=== PATIENT | female | born 1950 | race Caucasian/White ===

== ENCOUNTER → 2018-04-28 10:10 | Outpatient (CLI) | payer MEDICARE, OTHER, SELFPAY ==
--- NOTE | 2018-04-28 | DI.MG.S_ITS ---
BILATERAL DIGITAL SCREENING MAMMOGRAM 3D/2D WITH CAD: 04/28/2018 CLINICAL: Baseline exam. Routine screening. No prior exams were available for comparison. The tissue of both breasts is heterogeneously dense. This may lower the sensitivity of mammography. Current study was also evaluated with a Computer Aided Detection (CAD) system. No significant masses, calcifications, or other findings are seen in either breast. IMPRESSION: NEGATIVE There is no mammographic evidence of malignancy. A 1 year screening mammogram is recommended. This exam was interpreted at Station ID: [id number]. NOTE: For mammograms, a report in lay terms will be sent to the patient. Approximately 15% of breast malignancies will not be visualized mammographically. In the management of a palpable breast mass, a negative mammogram must not discourage biopsy of a clinically suspicious lesion. Electronically Signed By: Nina parra/naveed:04/28/2018 13:39:15 letter sent: Normal Exam ACR BI-RADS Category 1: Negative [id number]
== END ==
PROVIDERS: PCP Internal Medicine; Visit Provider Internal Medicine
DX: Z12.31 Encounter for screening mammogram for malignant neoplasm of breast (principal); M85.852 Other specified disorders of bone density and structure, left thigh
CPT/HCPCS: 77063; 77067; 77080; 77081

== ENCOUNTER 2019-01-06 17:20 | Emergency (ER) | payer MEDICARE, OTHER, SELFPAY ==
[2019-01-06 17:32] VITALS: BP 137/86; PULSE 68; RESP 14; TEMP 37.3; O2SAT 98; BMI 31.3
--- NOTE | 2019-01-06 18:12 | ED_ITS ---
HPI - Ear Problem <ALLEY Durham - Last Filed: 01/06/19 19:42> General Chief complaint: Ear Stated complaint: SUDDEN RIGHT EAR AND NECK PAIN Time Seen by Provider: 01/06/19 17:28 Source: patient and family Mode of arrival: ambulatory Limitations: no limitations History of Present Illness HPI Narrative: The patient is a 68-year-old female with history of depression who presents with chief complaint of sudden onset of right ear and throat pain. She denies any fevers nausea vomiting or diarrhea. She has taken a single Aleve for the pain. She denies any fevers nausea vomiting or diarrhea. She denies any left ear pain. She admits to scratching the inside of her right ear with her fingernail and insert acute tips. She states there is a little bit of blood on the Q-tip. Related Data Home Medications Medication Instructions Recorded Confirmed bupropion HCl XL 150 mg 24 hr 450 mg PO QAM 12/23/17 12/23/17 tablet, extended release escitalopram 20 mg tablet 20 mg PO DAILY tab 12/23/17 01/06/19 tamsulosin 0.4 mg capsule 0.4 mg PO DAILY 12/23/17 01/06/19 Previous Rx's Medication Instructions Recorded ofloxacin 10 drop EAR-RIGHT DAILY #10 ml 01/06/19 Allergies Allergy/AdvReac Type Severity Reaction Status Date / Time No Known Drug Allergies Allergy Verified 01/06/19 17:32 Review of Systems <ALLEY Durham - Last Filed: 01/06/19 19:42> Review of Systems GENERAL: Denies chills, fatigue, malaise, fever, sweats. HEENT: See HPI RESPIRATORY: Denies dyspnea, cough, wheezing, hemoptysis, sputum. CARDIOVASCULAR: Denies chest pain, palpitations, orthopnea, edema, GASTROINTESTINAL: Denies nausea, vomiting, abdominal pain, diarrhea, constipation, melena. : Denies dysuria, frequency, incontinence, hematuria, urinary retention. MUSCULOSKELETAL: denies weakness, joint pain, or bony pain SKIN: Denies rash, skin lesions, or other NEUROLOGIC: Denies weakness, headache, numbness, change in speech, confusion, seizures, incoordination. PSYCHIATRIC: No concerning psychosocial issues. 12 point review of systems is negative except for those stated above PFSH <ALLEY Durham - Last Filed: 01/06/19 19:42> Medical History Insomnia, persistent (Chronic) Obstructive sleep apnea of adult (Chronic) Social History Smoking Status: Unknown if ever smoked Social History Smoking Status: Unknown if ever smoked Exam <ALLEY Durham - Last Filed: 01/06/19 19:42> Narrative Exam Narrative: GENERAL: This is a well-nourished, well-developed patient, in no acute distress HEAD: Atraumatic. Normocephalic. No temporal or scalp tenderness. EYES: Pupils equal round and reactive. Extraocular motions intact. No scleral icterus. No injection or drainage. ENT: Nose without bleeding, purulent drainage or septal hematoma. Throat without erythema, tonsillar hypertrophy or exudate. Uvula midline. Airway patent. Bilateral TMs pearly paz. Right ear has erythema, swelling and slight blood in canal from an apparent scratch on the distal aspect of the ear canal. Left ear canals within normal limits. NECK: Trachea midline. No JVD or lymphadenopathy. Supple, nontender, no meningeal signs. CARDIOVASCULAR: Regular rate and rhythm without murmurs, gallops, or rubs. RESPIRATORY: Clear to auscultation. Breath sounds equal bilaterally. No wheezes, rales, or rhonchi. No cough. No increased respiratory effort. No accessory muscle use. GASTROINTESTINAL: Abdomen soft, non-tender, nondistended. No hepato- splenomegaly, or palpable masses. No guarding. EXTREMITIES: No clubbing, cyanosis, or edema. No joint tenderness, effusion, or edema noted. BACK: Nontender without deformity or crepitance. No flank tenderness. NEURO: AOx3. SKIN: No rash or erythema. Initial Vital Signs Initial Vital Signs: Vital Signs Temperature 99.2 F 01/06/19 17:32 Pulse Rate 68 01/06/19 17:32 Respiratory Rate 14 01/06/19 17:32 Blood Pressure 137/86 01/06/19 17:32 Pulse Oximetry 98 01/06/19 17:32 <Kathy Dc MD - Last Filed: 01/06/19 20:00> Initial Vital Signs Initial Vital Signs: Vital Signs Temperature 99.2 F 01/06/19 17:32 Pulse Rate 68 01/06/19 17:32 Respiratory Rate 14 01/06/19 17:32 Blood Pressure 137/86 01/06/19 17:32 Pulse Oximetry 98 01/06/19 17:32 Course <ALLEY Durham - Last Filed: 01/06/19 19:42> Vital Signs - 8 hr 01/06/19 17:32 01/06/19 18:37 Temperature 99.2 F Pulse Rate 68 72 Respiratory Rate 14 18 Blood Pressure 137/86 Blood Pressure [Left Arm] 132/57 L Pulse Oximetry 98 98 <Kathy Dc MD - Last Filed: 01/06/19 20:00> Vital Signs - 8 hr 01/06/19 17:32 01/06/19 18:37 Temperature 99.2 F Pulse Rate 68 72 Respiratory Rate 14 18 Blood Pressure 137/86 Blood Pressure [Left Arm] 132/57 L Pulse Oximetry 98 98 Medical Decision Making <ALLEY Durham - Last Filed: 01/06/19 19:42> Lab Data Point of Care Testing Rapid Strep A Negative Point of care testing: Point of Care Testing Rapid Strep A Negative MDM Narrative Medical decision making narrative: The patient is a 68-year-old female who prese [facility] with a chief complaint of sore throat and ear pain. She is strep negative. She has a nonacute exam. However given her exam, I will treat her for otitis externa given the swelling and erythema in her canal. I discussed at length follow up with primary care provider as well as taking [id number] medications as needed and able. Discussed coming back to the ER for any acute concerns such as chest pain shortness of breath etc. Patient has no questions or concerns upon discharge. <Kathy Dc MD - Last Filed: 01/06/19 20:00> Lab Data Point of Care Testing Rapid Strep A Negative Point of care testing: Point of Care Testing Rapid Strep A Negative Discharge Plan Departure Patient Disposition: Home Clinical Impression: Otitis externa Qualifiers: Otitis externa type: unspecified type Chronicity: acute Laterality: right Qualified Code(s): H60.501 - Unspecified acute noninfective otitis externa, right ear Discharge Date/Time: 01/06/19 18:38 Interventions: ED Discharge Assessment Last Done: 01/06/19 18:38 Instructions: How to Instill Ear Drops, DI for Otitis Externa Activity Restrictions/Additional Instructions: Please follow up with primary care provider. I have given you antibiotic drops for your ear. I suggest [id number] medications as needed and able for pain. Please come back to the ER for inability keep down fluids, high fever chest pain or shortness of breath. Prescriptions: New ofloxacin 0.3 % drops 10 drop EAR-RIGHT DAILY Qty: 10 RF: 0 No Action bupropion HCl 150 mg tablet extended release 24 hr 450 mg PO QAM RF: 0 tamsulosin 0.4 mg capsule,extended release 24hr 0.4 mg PO DAILY RF: 0 escitalopram oxalate 20 mg tablet 20 mg PO DAILY RF: 0 Referrals: Nasreen Huizar MD [Primary Care Provider] -
[2019-01-06 18:37] VITALS: BP 132/57; PULSE 72; RESP 18; O2SAT 98
== END 2019-01-06 18:38 | disposition home or self-care (01) ==
PROVIDERS: Emergency Provider Nurse Practitioner Family; PCP Internal Medicine
DX: H60.501 Unspecified acute noninfective otitis externa, right ear (principal)
CPT/HCPCS: 87880; 99282; 99283

== ENCOUNTER → 2019-03-18 08:47 | Outpatient (CLI) | payer MEDICARE, OTHER, SELFPAY ==
[2019-03-18 09:36] LABS: Cholesterol 216 mg/dL (140-199); HDL Cholesterol 65 mg/dL (40-60); LDL Cholesterol Calculated 140 mg/dL (<100); Triglycerides 57 mg/dL (35-150)
[2019-03-18 09:39] LABS: High Sensitivity CRP - Cardiac 1.9 mg/L (1.0-3.0)
== END ==
PROVIDERS: PCP Internal Medicine; Visit Provider Internal Medicine
DX: E78.5 Hyperlipidemia, unspecified (principal)
CPT/HCPCS: 36415; 80061; 86140

== ENCOUNTER 2021-09-01 16:04 | Emergency (ER) | payer MEDICARE, OTHER, SELFPAY ==
[2021-09-01] VITALS (24 sets, daily range): BP systolic 85–160; BP diastolic 51–91; PULSE 61–71; RESP 14–22; TEMP 36.7–37.2; O2SAT 95–100
--- NOTE | 2021-09-01 16:18 | DI.RAD.S_ITS ---
PROCEDURE: XR PELVIS 1-2V INDICATIONS: fall from horse, left back/thoracic/lumbar pain TECHNIQUE: 2 view(s) of the pelvis acquired. COMPARISON: None. FINDINGS: Bones: No fractures or dislocations. No suspicious bony lesions. Soft tissues: Visualized bowel gas pattern is normal. No suspicious soft tissue calcifications. IMPRESSION: No evidence acute bony abnormality of the pelvis. If clinical suspicion and/or symptoms persist, further assessment with repeat plain films, or advanced imaging (e.g., CT, MRI, or bone scan) may be helpful for further assessment. Dictated by: Jase Jimenez M.D. on 09/01/2021 at 16:20 Approved by: Jase Jimenez M.D. on 09/01/2021 at 16:21
--- NOTE | 2021-09-01 16:18 | DI.RAD.S_ITS ---
PROCEDURE: XR CHEST 1V INDICATIONS: fall from horse, left back/thoracic/lumbar pain TECHNIQUE: One view of the chest was acquired. COMPARISON: None. FINDINGS: Surgical changes and devices: None. Lungs and pleura: Lungs are clear. No pleural effusions or pneumothorax. Mediastinum: Mediastinal contours appear normal. Heart size is normal. Bones and chest wall: No suspicious bony lesions. Overlying soft tissues appear unremarkable. IMPRESSION: No evidence acute pulmonary process. Dictated by: Jase Jimenez M.D. on 09/01/2021 at 16:00 Approved by: Jase Jimenez M.D. on 09/01/2021 at 16:00
--- NOTE | 2021-09-01 16:19 | DI.CT.S_ITS ---
PROCEDURE: CT HEAD/BRAIN WO CON INDICATIONS: Trauma TECHNIQUE: Noncontrast 4.5 mm thick angled axial sections acquired from the foramen magnum to the vertex, with coronal and sagittal reformats. For radiation dose reduction, the following was used: automated exposure control, adjustment of mA and/or kV according to patient size. COMPARISON: None. FINDINGS: Image quality: Excellent. CSF spaces: Basal cisterns are patent. No extra-axial fluid collections. The ventricles are symmetric in size and shape. Brain: No intracranial bleeds or masses. There is cerebral volume loss for age, with resultant ventricular and sulcal prominence. There are periventricular and deep white matter chronic small vessel ischemic changes. There is intracranial internal carotid artery atherosclerosis. Skull and face: Calvarium and visualized facial bones appear intact, without suspicious lesions. Sinuses: Visualized sinuses and mastoids are clear. IMPRESSION: 1. No evidence of significant acute intracranial process. No evidence of significant intracranial sequelae of acute trauma. Dictated by: Jase Jimenez M.D. on 09/01/2021 at 16:52 Approved by: Jase Jimenez M.D. on 09/01/2021 at 16:54
--- NOTE | 2021-09-01 16:19 | DI.CT.S_ITS ---
PROCEDURE: CT CHEST ABD PEL W CON INDICATIONS: Trauma, fall from horse, left thoracic and lumbar back pain TECHNIQUE: After the administration of intravenous contrast, 5 mm thick sections acquired from the lung apices to the symphysis. 2.5 mm thick coronal and sagittal reformats were acquired. Additional 7 mm thick coronal maximum intensity projection (MIP) reformats acquired through the lungs. Optional 10-minute delayed imaging may be performed from the kidneys to the bladder. For radiation dose reduction, the following was used: automated exposure control, adjustment of mA and/or kV according to patient size. COMPARISON: None. FINDINGS: Image quality: Excellent. CHEST: Lungs: No pulmonary contusions or lacerations. No acute airspace opacities. No pneumothorax. Trace left pleural effusion. Central and peripheral airways appear patent and normal in caliber. Mediastinum: No mediastinal hematomas. Heart size is normal. No pericardial effusion. Thoracic aorta and pulmonary arteries demonstrate normal size and enhancement. No mediastinal or hilar adenopathy. Esophagus is normal in caliber. No hiatal hernia. Chest wall: There is a mid shaft left clavicular fracture. There is a mildly comminuted posterior left 2nd rib fracture. There is a subtle left posterior 3rd rib fracture. There are subtle left 7th and 8th rib fractures. There is a left 9th rib fracture and a left 10th rib fracture. No subcutaneous emphysema. No axillary or supraclavicular adenopathy. Thyroid gland is unremarkable as visualized. ABDOMEN: Solid organs: Spleen: AAST grade 3 splenic injury. There is laceration. There is intraparenchymal hemorrhage. There is subcapsular acute extravasation with extension outside the spleen into this surrounding retroperitoneal tissues with hemorrhagic retroperitoneal hematoma at outside of the spleen. The vascular hilum appears intact. A source of the arterial injury may be a small posterior vessel off of the hilum. Liver: AAST grade 2 subcapsular hematoma along the inferior medial surface of the liver. No active extravasation seen. Right kidney: AAST grade 4 injury, with extensive extravasation of urine forming what appears to be an acute ill-defined urinoma measuring approximately 12 cm in craniocaudal extent. Gallbladder contains small stones. It is intact. Biliary system is non-dilated. Pancreas enhances normally, without transection. No adrenal hematomas. Left kidney and ureter are unremarkable. Peritoneum and bowel: No free fluid or air. Unenhanced bowel loops demonstrate normal wall thickness and caliber. Nodes and vessels: No retroperitoneal or mesenteric adenopathy. Aorta and inferior vena cava are normal in size and enhancement. Miscellaneous: No ventral hernias. PELVIS: Genitourinary: Bladder wall thickness is normal. Miscellaneous: No inguinal hernias or adenopathy. Bones: There are left transverse process fractures of the 2nd and 3rd and 4th lumbar vertebrae. No vertebral compression fractures. IMPRESSION: 1. Bony fractures are as follows: Left clavicular fracture, fractures of 6th left ribs, fractures of the left transverse processes of L2, L3, and L4. 2. No pneumothorax. Some minimal left pleural effusion. 3. Grade 2 liver laceration. 4. Grade 3 splenic laceration with active extravasation and hemorrhage into the extra splenic retroperitoneal tissues. There may potentially be a focal source of extravasation which can potentially be embolized angiographically. 5. Grade 4 right renal injury with formation of a large acute urinoma. Comment: Findings were discussed with Dr. Salinas on 09/01/2021 at 1634 hours [place] Standard Time Dictated by: Jase Jimenez M.D. on 09/01/2021 at 16:25 Approved by: Jase Jimenez M.D. on 09/01/2021 at 16:48
--- NOTE | 2021-09-01 16:19 | DI.CT.S_ITS ---
PROCEDURE: CT CERVICAL SPINE WO CON INDICATIONS: Trauma TECHNIQUE: Noncontrast 3 mm thick sections acquired from the skull base to the T4 level. Sagittal and coronal reformats were then constructed. For radiation dose reduction, the following was used: automated exposure control, adjustment of mA and/or kV according to patient size. COMPARISON: None. FINDINGS: Image quality: Excellent. Bones: Severe cervical spondylitic change. No acute cervical fracture or dislocation. Fractures of the posterior left 1st and 2nd and 3rd and 4th ribs. Comminuted mid shaft left clavicular fracture. Soft tissues: Prevertebral soft tissues are normal in thickness. No paravertebral hematomas. No apical pneumothoraces. IMPRESSION: 1. No evidence acute cervical fracture or dislocation. 2. Severe cervical spondylitic change. 3. Comminuted mid shaft left clavicular fracture, fractures of the left 1st, 2nd, 3rd, and 4th ribs. Dictated by: Jase Jimenez M.D. on 09/01/2021 at 16:49 Approved by: Jase Jimenez M.D. on 09/01/2021 at 16:52
--- NOTE | 2021-09-01 16:21 | ED_ITS ---
HPI - Fall General Chief Complaint: Trauma Stated Complaint: Thrown from horse Time Seen by Provider: 09/01/21 16:07 Source: patient and EMS Mode of arrival: EMS Limitations: no limitations History of Present Illness HPI Narrative: This is a 71-year-old female who was riding her horse when it folded patient's fell onto her left side she pain left thoracic as well as left lumbar spine. Patient had not gotten up. She denies loss of consciousness. She has a small abrasion across her nose. Patient denies headache currently, no neck pain. She denies midline spinal pain but more on the left side and with movement of her left arm. Patient denies any shortness of breath she denies any nausea or vomiting. No loss of bowel or bladder control. No numbness or tingling. She states she is able to move her legs. She is able to lift them without pain. She does take tamsulosin, ibuprofen for an and Flomax no anticoagulants. No tobacco, occasional alcohol, no illicit. Patient received 100 mcg total of fent anyl in route. Related Data Home Medications Medication Instructions Recorded Confirmed bupropion HCl 150 mg 24 hr tablet, 450 mg PO QAM 12/23/17 02/13/21 extended release escitalopram oxalate 20 mg tablet 20 mg PO DAILY tab 12/23/17 02/13/21 tamsulosin 0.4 mg capsule 0.4 mg PO DAILY 12/23/17 02/13/21 Respironics Remstar CPAP #1 ea 04/26/19 02/13/21 naproxen 220 mg-diphenhydramine 25 1 tab PO BEDTIME 08/15/20 02/13/21 mg tablet (Naproxen PM) Allergies Allergy/AdvReac Type Severity Reaction Status Date / Time No Known Drug Allergies Allergy Verified 02/13/21 10:41 Review of Systems Review of Systems ROS Unobtainable: All systems reviewed & are unremarkable except as noted in HPI and below Patient History Medical History Depression Insomnia, 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 Patient appears in mild distress. HEAD: No evidence of trauma, no raccoon/[place] sign. NECK: Nontender, painless range of motion, trachea midline Positive for Nexus criteria, there is no midline line tenderness, positive for distracting distracting injury when rolled for evaluation, no altered mental status, neuro deficit, recent EtOH. EYES: PERRLA, EOMI ENT: External inspection normal except for a very superficial abrasion across the anterior bridge of the nose, trachea is midline, TM's are normal no hemotypanum, Nares are clear, no septal hematoma, no dental or oral injury, airway is normal and with normal occlusion, No bony tenderness RESP: Chest is nontender and has symmetric movement, no ecchymosis, breath sounds are normal no crackles, wheezes or rales CVS: Heart sounds are normal, no murmur noted, No JVD. ABG/GI: Nontender, soft, normal bowel sounds, no distention, no organomegaly, pelvic rock is negative GENIT, RECTAL: Normal external inspection, normal rectal ton NEURO: Oriented AOx3, neuro is grossly intact, sensation and motor is normal all 4 extremities moving, cranial nerves II through XII are intact, GCS is 15 PSYCH: Normal mood and affect SKIN: Intact, warm and dry, no crepitus and without decubitus BACK: No CVA tenderness, no vertebral tenderness, no step-off's, no crepitus EXT: Atraumatic, hips are nontender, no pedal edema, normal color and temperatu re, normal range of motion of extremities with normal tendon exam, 2+ pulses in all four extremities Initial Vital Signs Initial Vital Signs: Vital Signs Temperature 98.0 F 09/01/21 16:20 Respiratory Rate 22 09/01/21 16:20 Blood Pressure 160/91 H 09/01/21 16:20 Pulse Oximetry 99 09/01/21 16:20 Scores GCS Eric coma scale eye opening: Spontaneous [place] coma scale verbal response: Orientated Eric coma scale motor response: Obey commands Eric coma scale total score: 15 Course Orders Ordered: ED Orders 09/01/21 16:10 Complete Blood Count AUTO DIFF Stat Comprehensive Metabolic Panel Stat Ethanol (ETOH) Stat Lipase Stat PRBC [Packed Cells] Stat Partial Thromboplastin Time Stat Prothrombin Time INR Stat Type and Screen Stat 09/01/21 16:18 Chest [XR chest 1V] Stat XR pelvis 1-2V Stat 09/01/21 16:19 CT cervical spine wo con Stat CT chest abd pel w con Stat CT head/brain wo con Stat 09/01/21 16:39 EKG-12 Lead Stat 09/01/21 17:42 COVID19 -Nasal swab/Pre-Proc Stat Discontinued Medications Diphtheria/Tetanus/Acell Pertussis (Tet,Diph,Pertuss(Acell),Vac/Pf 0.5 Ml Syringe) 0.5 ml IM .ONCE ONE Stop: 09/01/21 16:21 Last Admin: 09/01/21 16:32 Dose: 0.5 ml Documented by: BTONER Morphine Sulfate (Morphine 4 Mg/Ml Inj) 4 mg IV NOW ONE Stop: 09/01/21 16:21 Last Admin: 09/01/21 16:31 Dose: 4 mg Documented by: BTONER Ondansetron HCl (Ondansetron 4 Mg/2 Ml Inj) 4 mg IV NOW ONE Stop: 09/01/21 16:21 Last Admin: 09/01/21 16:32 Dose: 4 mg Documented by: BTONER Ondansetron HCl (Ondansetron 4 Mg/2 Ml Inj) 4 mg IV NOW ONE Stop: 09/01/21 17:38 Consultations Consultation #1: Dr. Willis, general surgery. Renal laceration and bleed is noted on CT formal read is not back. Suspect patient needs to go to [facility] they have availability. Dr. Willis recontacted and updated on multiple solid organ lacerations with active bleed. Time: 17:35 Consultation #2: Dr. Jimenez, radiology. Patient has a grade 4 renal laceration with urine extravasation, grade 3 liver laceration with extravasation which is extra splenic as well as a subcapsular hematoma of the liver. Some rib fractures are noted no obvious pneumo, clavicular fracture. Patient's reads are not co mpleted. Time: 17:40 Consultation #3: [place]lah, Dr. Jerrica Rizzo accepts for transfer to [facility] ED. Time: 17:46 Vital Signs Vital signs: Vital Signs - 8 hr 09/01/21 16:20 09/01/21 16:30 09/01/21 16:40 Temperature 98.0 F Pulse Rate 66 61 Respiratory Rate 22 15 Blood Pressure 160/91 H 134/76 145/79 H Pulse Oximetry 99 99 100 09/01/21 16:50 09/01/21 17:00 09/01/21 17:10 Temperature Pulse Rate 66 65 67 Respiratory Rate 17 18 Blood Pressure Pulse Oximetry 98 95 97 09/01/21 17:13 09/01/21 17:15 09/01/21 17:20 Temperature Pulse Rate 66 67 66 Respiratory Rate 21 18 17 Blood Pressure 122/65 114/69 Pulse Oximetry 97 99 99 09/01/21 17:30 09/01/21 17:31 09/01/21 17:39 Temperature Pulse Rate 63 65 65 Respiratory Rate 19 20 22 Blood Pressure 93/51 L 91/54 L Pulse Oximetry 98 98 99 09/01/21 17:40 09/01/21 17:47 09/01/21 17:50 Temperature Pulse Rate 64 65 64 Respiratory Rate 19 19 20 Blood Pressure 85/51 L 88/51 L Pulse Oximetry 99 97 97 09/01/21 17:59 09/01/21 18:00 09/01/21 18:04 Temperature 99 F Pulse Rate 64 65 65 Respiratory Rate 17 16 16 Blood Pressure 91/51 L 95/54 L 95/54 L Pulse Oximetry 98 99 09/01/21 18:05 09/01/21 18:10 09/01/21 18:15 Temperature 98.0 F Pulse Rate 65 66 68 Respiratory Rate 17 18 15 Blood Pressure 97/55 L 106/56 L 109/57 L Pulse Oximetry 99 97 98 09/01/21 18:20 09/01/21 18:25 09/01/21 18:30 Temperature Pulse Rate 70 71 67 Respiratory Rate 17 14 18 Blood Pressure 109/61 116/67 115/69 Pulse Oximetry 98 98 99 MDM - Fall Lab Data Result diagrams: 09/01/21 16:10 09/01/21 16:10 Labs: Lab Results 09/01/21 09/01/21 09/01/21 Range/Units 16:10 16:10 16:10 WBC 10.4 (4.5-11.0) X10^3/uL RBC 4.97 (4.0-5.2) X10^6/uL Hgb 13.7 (12.0-16.0) g/dL Hct 40.7 (36-46) % MCV 81.8 (80-100) fL MCH 27.6 (26-34) PG MCHC 33.7 (30-36) % RDW 14.0 (11.6-14.8) % Plt Count 278 (150-400) X10^3/uL Neut % (Auto) 84.7 H (50-75) % Lymph % (Auto) 8.8 L (25-40) % [place] % (Auto) 5.4 (3-14) % Eos % (Auto) 0.7 L (2-4) % Baso % (Auto) 0.4 (0-2) % Neut # (Auto) 8800 H (6435-8883) /uL Lymph # (Auto) 900 L (2689-2422) /uL [place] # (Auto) 600 (0-900) /uL Eos # (Auto) 100 (0-450) /uL Baso # (Auto) 0 (0-100) /uL PT 12.1 (10.1-12.7) SECONDS INR 1.1 (0.9-1.3) APTT 29 (26.4-36.2) SECONDS Sodium 137 (137-145) mmol/L Potassium 3.8 (3.4-5.1) mmol/L Chloride 104 (98-107) mmol/L Carbon Dioxide 28 (22-32) mmol/L BUN 21 H (7-17) mg/dL Creatinine 0.71 (0.52-1.04) mg/dL Estimated GFR > 60.0 (>60) mL/min BUN/Creatinine Ratio 29.6 H (6-22) Glucose 102 (80-110) mg/dL Calcium 9.3 (8.4-10.2) mg/dL Total Bilirubin 0.6 (0.2-1.3) mg/dL AST 37 H (14-36) IU/L ALT 31 (<35) IU/L Alkaline Phosphatase 76 (38-126) U/L Total Protein 6.6 (6.3-8.2) g/dL Albumin 4.1 (3.5-5.0) g/dL Globulin 2.5 (1.7-4.1) g/dL Albumin/Globulin Ratio 1.6 (1.0-2.8) Lipase 195 (23-300) U/L Ethyl Alcohol < 10 ( - 10) mg/dL SARS-CoV-2 (PCR) (Negative) Blood Type Antibody Screen Crossmatch 09/01/21 09/01/21 Range/Units 16:10 17:42 WBC (4.5-11.0) X10^3/uL RBC (4.0-5.2) X10^6/uL Hgb (12.0-16.0) g/dL Hct (36-46) % MCV (80-100) fL MCH (26-34) PG MCHC (30-36) % RDW (11.6-14.8) % Plt Count (150-400) X10^3/uL Neut % (Auto) (50-75) % Lymph % (Auto) (25-40) % [place] % (Auto) (3-14) % Eos % (Auto) (2-4) % Baso % (Auto) (0-2) % Neut # (Auto) (0875-2394) /uL Lymph # (Auto) (1885-4709) /uL [place] # (Auto) (0-900) /uL Eos # (Auto) (0-450) /uL Baso # (Auto) (0-100) /uL PT (10.1-12.7) SECONDS INR (0.9-1.3) APTT (26.4-36.2) SECONDS Sodium (137-145) mmol/L Potassium (3.4-5.1) mmol/L Chloride (98-107) mmol/L Carbon Dioxide (22-32) mmol/L BUN (7-17) mg/dL Creatinine (0.52-1.04) mg/dL Estimated GFR (>60) mL/min BUN/Creatinine Ratio (6-22) Glucose (80-110) mg/dL Calcium (8.4-10.2) mg/dL Total Bilirubin (0.2-1.3) mg/dL AST (14-36) IU/L ALT (<35) IU/L Alkaline Phosphatase (38-126) U/L Total Protein (6.3-8.2) g/dL Albumin (3.5-5.0) g/dL Globulin (1.7-4.1) g/dL Albumin/Globulin Ratio (1.0-2.8) Lipase (23-300) U/L Ethyl Alcohol ( - 10) mg/dL SARS-CoV-2 (PCR) Negative (Negative) Blood Type B Negative Antibody Screen Negative Crossmatch See Detail Imaging Data CT scan - head: Radiologist's Impression: [address] [address] [address] Scan Report Signed Patient: Renee Johnson MR#: [id number] : 1950 Acct:[id number] Age/Sex: 71 / F Date of Service: 09/01/21 Loc: ED Accession Number: [id number] ?? Procedure: CT head/brain wo con Ordering Provider: Alejandrina Salinas D.O. PROCEDURE:? CT HEAD/BRAIN WO CON ? INDICATIONS:? Trauma ? TECHNIQUE:? Noncontrast 4.5 mm thick angled axial sections acquired from the foramen magnum to the vertex, with coronal and sagittal reformats.? For radiation dose reduction, the following was used:? automated exposure control, adjustment of mA and/or kV according to patient size.? ? COMPARISON:? None. ? FINDINGS:? Image quality:? Excellent.? ? CSF spaces:? Basal cisterns are patent.? No extra-axial fluid collections.? The ventricles are symmetric in size and shape.? ? Brain:? No intracranial bleeds or masses.? There is cerebral volume loss for age , with resultant ventricular and sulcal prominence.? There are periventricular and deep white matter chronic small vessel ischemic changes.? There is intracranial internal carotid artery atherosclerosis.? ? Skull and face:? Calvarium and visualized facial bones appear intact, without suspicious lesions.? ? Sinuses:? Visualized sinuses and mastoids are clear.? ? IMPRESSION:? ? 1. No evidence of significant acute intracranial process.? No evidence of significant intracranial sequelae of acute trauma. ? ? Dictated by: Jase Jimenez M.D. on 09/01/2021 at 16:52 ? ? Approved by: Jase Jimenez M.D. on 09/01/2021 at 16:54?? CT - cervical spine: Radiologist's Impression: [address] [address] [address] Scan Report Signed Patient: Renee Johnson MR#: [id number] : 1950 Acct:[id number] Age/Sex: 71 / F Date of Service: 09/01/21 Loc: ED Accession Number: [id number] ?? Procedure: CT cervical spine wo con Ordering Provider: Alejandrina Salinas D.O. PROCEDURE:? CT CERVICAL SPINE WO CON ? INDICATIONS:? Trauma ? TECHNIQUE:? Noncontrast 3 mm thick sections acquired from the skull base to the T4 level.? Sagittal and coronal reformats were then constructed.? For radiation dose reduction, the following was used:? automated exposure control, adjustment of mA and/or kV according to patient size.? ? COMPARISON:? None. ? FINDINGS:? Image quality:? Excellent.? ? Bones:? Severe cervical spondylitic change.? No acute cervical fracture or dislocation.? Fractures of the posterior left 1st and 2nd and 3rd and 4th ribs.? Comminuted mid shaft left clavicular fracture. ? Soft tissues:? Prevertebral soft tissues are normal in thickness.? No paravertebral hematomas.? No apical pneumothoraces.? ? ? IMPRESSION:? ? 1. No evidence acute cervical fracture or dislocation. ? 2. Severe cervical spondylitic change. ? 3. Comminuted mid shaft left clavicular fracture, fractures of the left 1st, 2nd, 3rd, and 4th ribs.? Dictated by: Jase Jimenez M.D. on 09/01/2021 at 16:49 ? ? Approved by: Jase Jimenez M.D. on 09/01/2021 at 16:52?? CT chest/abd/pelvis: Radiologist's Impression: Renee Johnson??71??F??1950 ? Allergy/Adv: No Known Drug Allergies Close Head CT (Signed) Jase Jimenez - 09/01/21 Chest/Abdomen/Pelvis CT (Signed) Jase Jimenez - 09/01/[address] (Signed) Jase Jimenez - 09/01/21 Pelvis X-Ray (Signed) Jase Jimenez - 09/01/21 Chest X-Ray (Signed) Jase Jimenez - 09/01/21 Mammogram Screening (Signed) Nina Mohamud - 04/28/18 Launch?[address] [place] [address] CT Scan Report Signed Patient: Renee Johnson MR#: [id number] : 1950 Acct:[id number] Age/Sex: 71 / F Date of Service: 09/01/21 Loc: ED Accession Number: [id number] ?? Procedure: CT chest abd pel w con Ordering Provider: Alejandrina Salinas D.O. PROCEDURE:? CT CHEST ABD PEL W CON ? INDICATIONS:? Trauma, fall from horse, left thoracic and lumbar back pain ? TECHNIQUE:? After the administration of intravenous contrast, 5 mm thick sections acquired from the lung apices to the symphysis.? 2.5 mm thick coronal and sagittal reformats were acquired. ?Additional 7 mm thick coronal maximum intensity projection (MIP) reformats acquired through the lungs.? Optional 10-minute delayed imaging may be performed from the kidneys to the bladder.? For radiation dose reduction, the following was used:? automated exposure control, adjustment of mA and/or kV according to patient size.? ? COMPARISON:? None. ? FINDINGS:? Image quality:? Excellent.? ? CHEST:? Lungs:? No pulmonary contusions or lacerations.? No acute airspace opacities.? No pneumothorax.? Trace left pleural effusion.? Central and peripheral airways appear patent and normal in caliber.? ? Mediastinum:? No mediastinal hematomas.? Heart size is normal.? No pericardial effusion.? Thoracic aorta and pulmonary arteries demonstrate normal size and enhancement.? No mediastinal or hilar adenopathy.? Esophagus is normal in caliber.? No hiatal hernia.? ? Chest wall:? There is a mid shaft left clavicular fracture.? There is a mildly comminuted posterior left 2nd rib fracture.? There is a subtle left posterior 3rd rib fracture.? There are subtle left 7th and 8th rib fractures.? There is a left 9th rib fracture and a left 10th rib fracture.? No subcutaneous emphysema.? No axillary or supraclavicular adenopathy.? Thyroid gland is unremarkable as visualized.? ? ? ABDOMEN:? Solid organs:? ? Spleen:? AAST grade 3 splenic injury.? There is laceration.? There is intraparenchymal hemorrhage.? There is subcapsular acute extravasation with extension outside the spleen into this surrounding retroperitoneal tissues with hemorrhagic retroperitoneal hematoma at outside of the spleen.? The vascular hilum appears intact.? A source of the arterial injury may be a small posterior vessel off of the hilum.? ? Liver:? AAST grade 2 subcapsular hematoma along the inferior medial surface of the liver. ?No active extravasation seen.? ? Right kidney: AAST grade 4 injury, with extensive extravasation of urine forming what appears to be an acute ill-defined urinoma measuring approximately 12 cm in craniocaudal extent.? ? Gallbladder contains small stones.? It is intact.? Biliary system is non- dilated.? Pancreas enhances normally, without transection.? No adrenal hematomas.? Left kidney and ureter are unremarkable. ? Peritoneum and bowel:? No free fluid or air.? Unenhanced bowel loops demonstrate normal wall thickness and caliber.? ? Nodes and vessels:? No retroperitoneal or mesenteric adenopathy.? Aorta and inferior vena cava are normal in size and enhancement.? ? Miscellaneous:? No ventral hernias.? ? ? PELVIS:? Genitourinary:? Bladder wall thickness is normal.? ? Miscellaneous:? No inguinal hernias or adenopathy.? ? Bones:? There are left transverse process fractures of the 2nd and 3rd and 4th lumbar vertebrae.? No vertebral compression fractures. ? ? IMPRESSION:? ? 1. Bony fractures are as follows:? Left clavicular fracture, fractures of 6th left ribs, fractures of the left transverse processes of L2, L3, and L4. ? 2. No pneumothorax.? Some minimal left pleural effusion. ? 3. Grade 2 liver laceration. ? 4. Grade 3 splenic laceration with active extravasation and hemorrhage into the extra splenic retroperitoneal tissues.? There may potentially be a focal source of extravasation which can potentially be embolized angiographically. ? 5. Grade 4 right renal injury with formation of a large acute urinoma.? ? Comment:? Findings were discussed with Dr. Salinas on 09/01/2021 at 1634 hours [place] Standard Time ? Dictated by: Jase Jimenez M.D. on 09/01/2021 at 16:25 ? ? Approved by: Jase Jimenez M.D. on 09/01/2021 at 16:48?? Chest x-ray: Radiologist's Impression: [address] [address] XRay Report Signed Patient: Renee Johnson MR#: [id number] : 1950 Acct:[id number] Age/Sex: 71 / F Date of Service: 09/01/21 Loc: ED Accession Number: [id number] ?? Procedure: XR chest 1V Ordering Provider: Alejandrina Salinas D.O. PROCEDURE:? XR CHEST 1V ? INDICATIONS:? fall from horse, left back/thoracic/lumbar pain ? TECHNIQUE:? One view of the chest was acquired.? ? COMPARISON:? None. ? FINDINGS:? ? Surgical changes and devices:? None.? ? Lungs and pleura:? Lungs are clear.? No pleural effusions or pneumothorax.? ? Mediastinum:? Mediastinal contours appear normal.? Heart size is normal.? ? Bones and chest wall:? No suspicious bony lesions.? Overlying soft tissues appear unremarkable.? ? IMPRESSION:? No evidence acute pulmonary process. ? ? ? Dictated by: Jase Jimenez M.D. on 09/01/2021 at 16:00 ? ? Approved by: Jase Jimenez M.D. on 09/01/2021 at 16:00?? pelvic xray: Radiologist's Impression: [place] [address] XRay Report Signed Patient: Renee Johnson MR#: [id number] : 1950 Acct:[id number] Age/Sex: 71 / F Date of Service: 09/01/21 Loc: ED Accession Number: [id number] ?? Procedure: XR pelvis 1-2V Ordering Provider: Alejandrina Salinas D.O. PROCEDURE:? XR PELVIS 1-2V ? INDICATIONS:? fall from horse, left back/thoracic/lumbar pain ? TECHNIQUE:? 2 view(s) of the pelvis acquired.? ? COMPARISON:? None. ? FINDINGS:? ? Bones:? No fractures or dislocations.? No suspicious bony lesions.? ? Soft tissues:? Visualized bowel gas pattern is normal.? No suspicious soft tissue calcifications.? ? IMPRESSION:? No evidence acute bony abnormality of the pelvis. ? If clinical suspicion and/or symptoms persist, further assessment with repeat plain films, or advanced imaging (e.g., CT, MRI, or bone scan) may be helpful for further assessment. ? Dictated by: Jase Jimenez M.D. on 09/01/2021 at 16:20 ? ? Approved by: Jase Jimenez M.D. on 09/01/2021 at 16:21? ECG Data Attestation: I personally reviewed and interpreted this ECG as follows: Prior ECG tracings: not available for review Interpretation: Normal sinus rhythm, right bundle-branch block, rate of 61, IL 196, QRS of [address] No acute [address] changes appreciated. MDM Narrative Medical decision making narrative: This is a 71-year-old female comes emergency department after a fall from a horse patient states the horse bolted she fell on her left side. She was not able to ambulate scene. She complains of pain of her left thoracic and left lumbar region. She denies any anterior chest pain or abdominal pain anteriorly. Patient denies any headache or neck pain. Patient has GCS of 15 no head or neck pain but head and C-spine were included, chest abdomen pelvis. Her labs are reassuring but her blood pressures been slowly drifting down, she arrived with a systolic of 140 and her systolic is 90. Patient's heart rate has been persistently in the 60s no known beta blockers or other medications that should prevent reflex tachycardia but patient does appear more pale than upon initial arrival. CT shows liver laceration with subcapsular hematoma, grade 3 splenic laceration with extravasation with, renal laceration that is grade 4 with urine extravasation, rib fractures but no obvious pneumothorax, clavicle of fracture. No obvious pelvic fractures but final radiology read is still pending. Patient is maintaining C-spine precautions. Transfusing blood for hypotension in the setting of trauma with active extravasation on imaging, patient's blood pressure improved as well as her color. Patient transfered to higher level facility for possible embolization as well as surgical intervention and was accepted at [facility] by Dr. Rizzo. Critical Care Time Critical Care Time Critical Care Time: Yes Total Critical Care Time: 55 Attestation: The high probability of a clinically significant, sudden or life threatening deterioration of the [cardiac, pulm] system(s) required my full and direct attention, intervention and personal management. The aggregate critical care time was [55] minutes. This time is in addition to time spent performing reported procedures but includes the following: [x] Data Review and interpretation [x] Patient assessment and monitoring of vital signs [x] Documentation [x] Medication orders and management Discharge Plan Departure Patient Disposition: [facility] Clinical Impression: Kidney laceration, Liver laceration, Splenic laceration, Fracture, ribs, Fracture of clavicle, Lumbar transverse process fracture Prescriptions: No Action (DME) Respironics Remstar CPAP Qty: 1 0RF Rx Instructions: Pressure: 6-14 cmH2O DME: [place] bupropion HCl 150 mg tablet extended release 24 hr 450 mg PO QAM 0RF tamsulosin 0.4 mg capsule,extended release 24hr 0.4 mg PO DAILY 0RF escitalopram oxalate 20 mg tablet 20 mg PO DAILY 0RF Naproxen PM 220-25 mg tablet 1 tab PO BEDTIME 0RF Referrals: Virginie Siddiqui PA-C [Primary Care Provider] -
[2021-09-01 16:26] LABS: Add Manual Diff / Slide Review NO; Basophils Absolute Auto 0 /uL (0-100); Basophils Percent Auto 0.4 % (0-2); Eosinophils Absolute Auto 100 /uL (0-450); Eosinophils Percent Auto 0.7 % (2-4); Hematocrit 40.7 % (36-46); Hemoglobin 13.7 g/dL (12.0-16.0); Lymphocytes Absolute Auto 900 /uL (1100-4500); Lymphocytes Percent Auto 8.8 % (25-40); Mean Corpuscular HGB Conc 33.7 % (30-36); Mean Corpuscular Hemoglobin 27.6 PG (26-34); Mean Corpuscular Volume 81.8 fL (80-100); Monocytes Absolute Auto 600 /uL (0-900); Monocytes Percent Auto 5.4 % (3-14); Neutrophils Absolute Auto 8800 /uL (1500-7000); Neutrophils Percent Auto 84.7 % (50-75); Platelet Count 278 X10^3/uL (150-400); Red Blood Cell Count 4.97 X10^6/uL (4.0-5.2); White Blood Cell Count 10.4 X10^3/uL (4.5-11.0)
[2021-09-01 16:27] LABS: INR 1.1 (0.9-1.3); Prothrombin Time 12.1 SECONDS (10.1-12.7)
[2021-09-01 16:29] LABS: PTT Partial Thromboplastin Tim 29 SECONDS (26.4-36.2)
[2021-09-01] MEDS: MORPHINE 4 MG/ML INJ IV (16:31)
[2021-09-01] MEDS: TET,DIPH,PERTUSS(ACELL),VAC/PF 0.5 ML SYRINGE IM (16:32)
[2021-09-01] MEDS: ONDANSETRON 4 MG/2 ML INJ IV (16:32)
[2021-09-01 16:41] LABS: Alanine Aminotransferase 31 IU/L (<35); Albumin 4.1 g/dL (3.5-5.0); Albumin Globulin Ratio 1.6 (1.0-2.8); Alkaline Phosphatase 76 U/L (38-126); Aspartate Aminotransferase 37 IU/L (14-36); BUN Creatinine Ratio 29.6 (6-22); Bilirubin Total 0.6 mg/dL (0.2-1.3); Blood Urea Nitrogen 21 mg/dL (7-17); Calcium 9.3 mg/dL (8.4-10.2); Carbon Dioxide 28 mmol/L (22-32); Chloride 104 mmol/L (98-107); Estimated Glomerular Filt Rate > 60.0 mL/min (>60); Ethanol (ETOH) < 10 mg/dL; Globulin 2.5 g/dL (1.7-4.1); Glucose 102 mg/dL (80-110); HEMOLYSIS < 15 (0-50); Lipase 195 U/L (23-300); Potassium 3.8 mmol/L (3.4-5.1); Sodium 137 mmol/L (137-145); Total Protein 6.6 g/dL (6.3-8.2)
[2021-09-01] MEDS: ONDANSETRON 4 MG/2 ML INJ (17:45)
[2021-09-01 18:04] LABS: COVID19 -Nasal RAPID Negative (Negative)
--- NOTE | 2021-09-01 18:05 | PC.NURSE ---
pt bp dropped at 1703, again at 1715, as noted in chart. dr feliciano ordered prbc's, noted. started infusion at 1755, [facility] contacted along with angelic. pt remains alert and oriented,
--- NOTE | 2021-09-01 18:13 | PC.NURSE ---
pt son at bedside, aware of plan.
--- NOTE | 2021-09-01 18:47 | PC.NURSE ---
2nd unit of PRBC's handed over to [employer] team for travel. pt leaving room now. Son provided info on [facility] visitor policy. son has pt belongings. pt has her cell phone, with her label.
--- NOTE | 2021-09-01 19:17 | PC.NURSE ---
[facility] form faxed.
--- NOTE | 2021-09-01 19:19 | PC.NURSE ---
late entry, 1705 pt skin became pale. pt A&O x 3.
--- NOTE | 2021-09-01 19:20 | PC.NURSE ---
pt skin warm, dry and color appropriate.
== END 2021-09-01 18:50 | disposition short-term general hospital (02) ==
PROVIDERS: Emergency Provider Emergency Medicine; PCP Physician Assistant
DX: S37.031A Laceration of right kidney, unspecified degree, initial encounter (principal); S36.113A Laceration of liver, unspecified degree, initial encounter; S36.039A Unspecified laceration of spleen, initial encounter; S22.32XA Fracture of one rib, left side, initial encounter for closed fracture; S42.022A Displaced fracture of shaft of left clavicle, initial encounter for closed fracture; S32.028A Other fracture of second lumbar vertebra, initial encounter for closed fracture; S32.038A Other fracture of third lumbar vertebra, initial encounter for closed fracture; S32.048A Other fracture of fourth lumbar vertebra, initial encounter for closed fracture; V80.010A Animal-rider injured by fall from or being thrown from horse in noncollision accident, initial encounter; Y93.52 Activity, horseback riding; Z23 Encounter for immunization; Z20.822 Contact with and (suspected) exposure to COVID-19; S00.31XA Abrasion of nose, initial encounter
CPT/HCPCS: 36430; 70450; 71045; 71260; 72125; 72170; 74177; 80053; 80320; 83690; 85025; 85610; 85730; 86850; 86900; 86901; 87635; 90471; 93005; 96374; 96375; 99285; 99291; 99292; C9803; P9016; 90715; G0390; J2270; J2405; Q9967

== ENCOUNTER 2021-09-16 23:10 | Emergency (ER) | payer MEDICARE, SELFPAY ==
[2021-09-16 23:13] VITALS: BP 165/91; PULSE 65; RESP 22; TEMP 36.9; O2SAT 98; BMI 31.3
--- NOTE | 2021-09-16 23:22 | DI.RAD.S_ITS ---
PROCEDURE: XR CHEST 2V INDICATIONS: Shortness of breath TECHNIQUE: 2 views of the chest were acquired. COMPARISON: [facility], CR, XR CHEST 1V, 09/01/2021, 16:17. FINDINGS: Surgical changes and devices: None. Lungs and pleura: There is pulmonary edema. Linear left basilar opacities likely represent atelectasis versus developing consolidation. There is a small left pleural effusion. No pneumothorax. Mediastinum: Heart size is enlarged. Bones and chest wall: No suspicious bony abnormalities. Soft tissues appear unremarkable. IMPRESSION: 1. Pulmonary edema with cardiomegaly and small left pleural effusions suggestive of congestive heart failure. Dictated by: Jluis Faye M.D. on 09/17/2021 at 0:29 Approved by: Jluis Faye M.D. on 09/17/2021 at 0:30
[2021-09-16 23:37] VITALS: PULSE 65; O2SAT 97
[2021-09-17] VITALS: PULSE 65; O2SAT 95
--- NOTE | 2021-09-17 00:38 | PC.NURSE ---
Incision closed with [address] Mccullough suggestion and covered with a telfa dressing.
--- NOTE | 2021-09-17 02:29 | ED_ITS ---
HPI - Wound/Laceration General Chief Complaint: Wound/Laceration Stated Complaint: chest tube drain site has liquid need xray Time Seen by Provider: 09/16/21 23:21 Source: patient and family Mode of arrival: Ambulatory History of Present Illness HPI narrative: 71-year-old female nonsmoker presents with a family friend and a chief complaint of drainage from a chest tube site. She had recently been treated as a trauma patient after being thrown from her horse. Injuries include left clavicle multiple ribs and hemothorax which required chest tube. The chest tube was removed last week and patient has been at home and doing quite well. She is not dizzy nor weak or lightheaded. She denies any chest pain or shortness of breath. She states that she had been cleaning herself and had a bit of a cough which resulted in a popping sensation in the left side of her chest. She then felt a rather large amount of warm fluid drain. She called her doctor and was instructed to come here. The drainage has all but stopped and she is at her baseline. Related Data Home Medications Medication Instructions Recorded Confirmed bupropion HCl 150 mg 24 hr tablet, 450 mg PO QAM 12/23/17 02/13/21 extended release escitalopram oxalate 20 mg tablet 20 mg PO DAILY tab 12/23/17 02/13/21 tamsulosin 0.4 mg capsule 0.4 mg PO DAILY 12/23/17 02/13/21 Respironics Remstar CPAP #1 ea 04/26/19 02/13/21 naproxen 220 mg-diphenhydramine 25 1 tab PO BEDTIME 08/15/20 02/13/21 mg tablet (Naproxen PM) Allergies Allergy/AdvReac Type Severity Reaction Status Date / Time Penicillins Allergy Intermediate Hives Verified 09/16/21 23:29 Review of Systems Review of Systems Narrative: GENERAL: Denies chills, fatigue, malaise, fever, sweats. HEENT: Denies sinus pain, ear pain, sore throat, difficulty swallowing, dizziness. RESPIRATORY: Denies dyspnea, cough, wheezing, hemoptysis, sputum. CARDIOVASCULAR: Denies chest pain, palpitations, orthopnea, edema, GASTROINTESTINAL: Denies nausea, vomiting, abdominal pain, diarrhea, constipation, melena. : Denies dysuria, frequency, incontinence, hematuria, urinary retention. MUSCULOSKELETAL: denies weakness, joint pain, or bony pain SKIN: Denies rash, skin lesions, or other NEUROLOGIC: Denies weakness, headache, numbness, change in speech, confusion, seizures, incoordination. PSYCHIATRIC: No concerning psychosocial issues. 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 Well-developed patient, in mild distress. GCS 15 HEAD: Atraumatic. Normocephalic. EYES: Pupils equal round and reactive. Extraocular motions intact. No scleral icterus. No injection or drainage. ENT: Nose without bleeding, purulent drainage. Throat without erythema, tonsillar hypertrophy or exudate. Airway patent. NECK: Trachea midline. Non tender CARDIOVASCULAR: Regular rate and rhythm without murmurs, gallops, or rubs. Left lateral ribs evaluated, incision site from chest to noted, very small area of dehiscence with minimal serous drainage. No surrounding pain, induration, fluctuance or erythema. No purulence noted RESPIRATORY: Clear to auscultation. Breath sounds equal bilaterally. No wheezes, rales, or rhonchi. GASTROINTESTINAL: Abdomen soft, non-tender, nondistended. EXTREMITIES: No edema or joint tenderness. BACK: Nontender without deformity or crepitance. No flank tenderness. NEURO: AOx3. SKIN: No rash or erythema of visible areas Initial Vital Signs Initial Vital Signs: Vital Signs Temperature 98.5 F 09/16/21 23:13 Pulse Rate 65 09/16/21 23:13 Respiratory Rate 22 09/16/21 23:13 Blood Pressure 165/91 H 09/16/21 23:13 Pulse Oximetry 98 09/16/21 23:13 Course Orders Ordered: ED Orders 09/16/21 23:22 XR chest 2V Stat Vital Signs Vital signs: Vital Signs - 8 hr 09/16/21 23:13 09/16/21 23:37 09/17/21 00:00 Temperature 98.5 F Pulse Rate 65 65 65 Respiratory Rate 22 Blood Pressure 165/91 H Pulse Oximetry 98 97 95 [facility] - Wound/Laceration Imaging Data Chest x-ray: Radiologist's Impression: Launch?Image [address] [address] XRay Report Signed Patient: Renee Johnson MR#: [id number] : 1950 Acct:[id number] Age/Sex: 71 / F Date of Service: 09/16/21 Loc: ED Accession Number: [id number] ?? Procedure: XR chest 2V Ordering Provider: Jose Mccullough D.O. PROCEDURE:? XR CHEST 2V ? INDICATIONS:? Shortness of breath ? TECHNIQUE:? 2 views of the chest were acquired.? ? COMPARISON:? [facility], , XR CHEST 1V, 09/01/2021, 16:17. ? FINDINGS:? ? Surgical changes and devices:? None.? ? Lungs and pleura:? There is pulmonary edema.? Linear left basilar opacities likely represent atelectasis versus developing consolidation.? There is a small left pleural effusion.? No pneumothorax.? ? Mediastinum:? Heart size is enlarged.? ? Bones and chest wall:? No suspicious bony abnormalities.? Soft tissues appear unremarkable.? ? IMPRESSION:? ? 1. Pulmonary edema with cardiomegaly and small left pleural effusions suggestive of congestive heart failure.? ? ? Dictated by: Jluis Faye M.D. on 09/17/2021 at 0:29 ? ? Approved by: Jluis Faye M.D. on 09/17/2021 at 0:30 ? [facility] Narrative Medical decision making narrative: Patient had a large amount of fluid leakage from chest tube site. She is at her baseline, has no ongoing drainage, denies chest pain or shortness of breath. Vital signs are stable. Chest x-ray is unremarkable. I have reviewed with on- call surgery and we sure the opinion that she is appropriate for discharge. Her history and physical are very reassuring and was suggest the potential of a seroma that had drained. A dressing is replaced and patient is given extensive return precautions. Questions answered to her apparent satisfaction Discharge Plan Departure Patient Disposition: Home Clinical Impression: Wound discharge Instructions: Wound Dehiscence Activity Restrictions/Additional Instructions: *You have been diagnosed with [wound dehiscence and drainage of seroma *What to do: *Please continue to take your regular medications as directed. [ ] New medication prescriptions sent to your pharmacy: [ ] [ ] New medication written as a paper prescription [x ] No new medications given *Please follow up with your primary care provider in 2-3 days, call for an appointment. Let them know you were seen in the Emergency Department and that we ask that you be seen in follow up. We will electronically transmit a record of today's note if your PCP is in our system *If you do not have a primary care provider please contact the [facility] Resource line at [phone]. They will ask some questions about your medical history and help get you set up with a doctor in the community. *Return to Emergency Department if you should have any new, worsening or concerning symptoms, such as [fever greater than 101 F, shaking chills, worsening pain, persistent vomiting or other bothersome symptoms] Prescriptions: No Action (DME) Respironics Remstar CPAP Qty: 1 0RF Rx Instructions: Pressure: 6-14 cmH2O DME: [place] bupropion HCl 150 mg tablet extended release 24 hr 450 mg PO QAM 0RF tamsulosin 0.4 mg capsule,extended release 24hr 0.4 mg PO DAILY 0RF escitalopram oxalate 20 mg tablet 20 mg PO DAILY 0RF Naproxen PM 220-25 mg tablet 1 tab PO BEDTIME 0RF Referrals: Virginie Siddiqui PA-C [Primary Care Provider] -
== END 2021-09-17 00:40 | disposition home or self-care (01) ==
PROVIDERS: Emergency Provider Emergency Medicine; PCP Physician Assistant
DX: T81.31XA Disruption of external operation (surgical) wound, not elsewhere classified, initial encounter (principal)
CPT/HCPCS: 71046; 99283

== ENCOUNTER → 2021-10-09 10:10 | Outpatient (CLI) | payer MEDICARE, SELFPAY ==
--- NOTE | 2021-10-09 10:34 | DI.RAD.S_ITS ---
PROCEDURE: XR CLAVICLE LT INDICATIONS: FOLLOW UP PROGRESSION OF HEALING TECHNIQUE: 2 views of the clavicle were acquired. COMPARISON: [facility], CR, XR CHEST 2V, 09/16/2021, 23:12. FINDINGS: Bones: Redemonstrated fracture deformity of the left clavicle with evidence of callus formation. Arthrosis of the AC and glenohumeral articulations. Soft tissues: No suspicious soft tissue calcifications. IMPRESSION: Ongoing healing of the patient's distal clavicle fracture. Dictated by: Nicolas Marin M.D. on 10/09/2021 at 13:36 Approved by: Nicolas Marin M.D. on 10/09/2021 at 13:38
== END ==
PROVIDERS: PCP Physician Assistant; Referring Provider Orthopaedic Surgery Orthopaedic Trauma; Visit Provider Orthopaedic Surgery Orthopaedic Trauma
DX: S42.002D Fracture of unspecified part of left clavicle, subsequent encounter for fracture with routine healing (principal); X58.XXXD Exposure to other specified factors, subsequent encounter
CPT/HCPCS: 73000

== ENCOUNTER → 2021-11-28 15:50 | Outpatient (CLI) | payer MEDICARE, OTHER, SELFPAY ==
--- NOTE | 2021-11-28 | DI.RAD.S_ITS ---
PROCEDURE: XR CLAVICLE LT INDICATIONS: Fracture of unspecified part of left clavicle, subsequent en TECHNIQUE: 2 views of the clavicle were acquired. COMPARISON: [facility], CR, XR CLAVICLE LT, 10/09/2021, 10:26. FINDINGS: Bones: Healing fracture deformity of the mid right clavicular shaft where there is superior displacement of the proximal fracture component with moderate bony override. Fracture lucencies are slightly less distinct indicating healing. Acromioclavicular joint is intact. Soft tissues: No suspicious soft tissue calcifications. IMPRESSION: Healing fracture deformity of the mid left clavicular shaft. Dictated by: Imtiaz Allen RRA Interpreted: Artur Aaron MD on 11/28/2021 at 16:22 Transcribed by: STEWART on 11/28/2021 at 16:23 Approved by: Artur Aaron M.D. on 11/28/2021 at 16:59
== END ==
PROVIDERS: PCP Physician Assistant; Referring Provider Nurse Practitioner; Visit Provider Nurse Practitioner
DX: S42.022D Displaced fracture of shaft of left clavicle, subsequent encounter for fracture with routine healing (principal); X58.XXXD Exposure to other specified factors, subsequent encounter
CPT/HCPCS: 73000

== ENCOUNTER → 2021-12-02 11:59 | Outpatient (CLI) | payer MEDICARE, OTHER, SELFPAY ==
--- NOTE | 2021-12-02 12:12 | DI.US.S_ITS ---
PROCEDURE: US PELVIC COMPLETE INDICATIONS: Endometrial hyperplasia; Thyriod nodule TECHNIQUE: Real-time scanning was performed of the pelvic organs, with image documentation. Additional endovaginal scanning was necessary due to incomplete visualization of the adnexal and endometrial structures by transabdominal scanning. COMPARISON: None. FINDINGS: Uterus: Uterus is anteverted and normal in size at 7.1 x 3.5 x 5.9 cm. The myometrium is homogeneous. 1.3 x 0.7 x 1.1 cm calcified intramural fibroid is seen in right myometrium. 1 x 0.7 x 0.9 cm intramural fibroid is also noted in anterior left myometrium near midline. The endometrium measures 21.2 mm combined thickness. Heterogeneous echotexture of endometrium is noted with internal vascularity. Ovaries: The right ovary measures 1.6 x 0.9 x 1.1 cm. The left ovary is not visualized. The right ovary has a normal sonographic appearance. Less than 12 follicles can be seen in right ovary. No adnexal masses are seen. Other: No pathologic free abdominal or pelvic fluid. IMPRESSION: 1. Thickened endometrium with heterogeneous echotexture and internal vascularity. This could represent atrial hyperplasia. Malignant process cannot be excluded. Integration Developer correlation is recommended. 2. Small uterine fibroids as described above. 3. Normal appearing right ovary. Left ovary is not visualized. No gross adnexal mass. We strive to produce accurate, complete, and clear reports of imaging services. To assist us in improving patient care, this report was composed using standard report templates and voice recognition software. Therefore, it may contain abnormal punctuation, insertions and/or omissions. Occasional wrong-word or sound-alike substitutions may occur. Though we review the report and make efforts to correct it, we do recommend that the report be read carefully in proper context to recognize any text inaccuracies. Dictated by: Artur Aaron M.D. on 12/02/2021 at 15:10 Approved by: Artur Aaron M.D. on 12/02/2021 at 15:22
--- NOTE | 2021-12-02 12:13 | DI.US.S_ITS ---
PROCEDURE: US THYROID INDICATIONS: Endometrial hyperplasia; Thyroid nodule TECHNIQUE: Real-time scanning was performed of the thyroid gland, with image documentation. COMPARISON: None. FINDINGS: Right: Thyroid lobe measures 4.3 x 1.2 x 1.3 cm, and is homogeneous in echotexture. Left: Thyroid lobe measures 3.6 x 1.5 x 1.4 cm, and is homogenous in echotexture. Isthmus: Seven mm thick. Nodule number: 1 Location: Left inferior pole Size: 1.6 x 1.0 x 1.3 cm. Composition: Mixed cystic and solid Echogenicity: Heterogeneous, hypoechoic Shape: wider than tall. Margins: Smooth Echogenic foci: Punctate Total points: Six ACR TI-RADS category: Four, moderately suspicious IMPRESSION: 1. 1.6 cm moderately suspicious left lower pole thyroid nodule. FNA is recommended for nodule at this size. While this is visible, this may not be readily accessible for FNA. ACR TI-RADS definitions and recommendations: TI-RADS 1 (benign): 0 points. FNA not needed. TI-RADS 2 (not suspicious): 2 points. FNA not needed. TI-RADS 3 (mildly suspicious): 3 points. * FNA if 2.5 cm or larger, follow up if 1.5 cm or larger (at 1, 3, and 5 years). TI-RADS 4 (moderately suspicious): 4-6 points. * FNA if 1.5 cm or larger, follow up if 1 cm or larger (at 1, 2, 3, and 5 years). TI-RADS 5 (highly suspicious): 7 points or more. * FNA if 1 cm or larger, follow up if 0.5 cm or larger (every year for 5 years). Dictated by: Mavis Catherine M.D. on 12/02/2021 at 15:32 Approved by: Mavis Catherine M.D. on 12/02/2021 at 15:38
== END ==
PROVIDERS: PCP Physician Assistant; Referring Provider Physician Assistant; Visit Provider Physician Assistant
DX: E04.1 Nontoxic single thyroid nodule (principal); N85.00 Endometrial hyperplasia, unspecified; R93.89 Abnormal findings on diagnostic imaging of other specified body structures; D25.1 Intramural leiomyoma of uterus
CPT/HCPCS: 76536; 76856

== ENCOUNTER → 2023-02-25 14:09 | Outpatient (CLI) | payer OTHER, SELFPAY ==
--- NOTE | 2023-02-25 | DI.MG.S_ITS ---
BILATERAL DIGITAL SCREENING MAMMOGRAM 3D/2D WITH CAD: 02/25/2023 CLINICAL: Routine screening. Comparison is made to exam dated: 04/28/2018 mammogram - [facility]. Both breasts are heterogeneously dense, which may obscure small masses (category c / 51-75% glandular tissue). Current study was also evaluated with a Computer Aided Detection (CAD) system. There is a possible an irregular mass with grouped calcifications in the left breast at 1 o'clock middle depth. This is more prominent. No other significant masses, calcifications, or other findings are seen in either breast. IMPRESSION: INCOMPLETE: NEEDS ADDITIONAL IMAGING EVALUATION The possible irregular mass in the left breast is indeterminate. Additional views with possible ultrasound are recommended. Based on the Tyrer Cuzick model (a risk assessment model) the patient's lifetime risk is 7.5% and her 10 year risk is 6.7%. According to the ACR, ACS, and NCCN guidelines, an annual breast MRI exam along with mammogram is recommended if the patient's lifetime risk is 20% or greater. This exam was interpreted at Station ID: [id number]. NOTE: For mammograms, a report in lay terms will be sent to the patient. Approximately 15% of breast malignancies will not be visualized mammographically. In the management of a palpable breast mass, a negative mammogram must not discourage biopsy of a clinically suspicious lesion. Electronically Signed By: Daniel Ervin M.D. [facility]/:02/25/2023 17:56:24 letter sent: Additional Imaging Needed ACR BI-RADS Category 0: Incomplete 3340F
--- NOTE | 2023-02-25 | DI.RAD.S_ITS ---
Bone Density Report Name: DAISY FIERRO Age: 72 Sex: Female Ethnicity: White Date of : 1950 Indication: postmenopausal; screening for osteoporosis; Referring Provider: ZIGGY MELVIN Study: Bone densitometry was performed. Exam Date: February 25, 2023 Accession number: [id number] Bone Density: Region BMD T-score Z-score Classification AP Spine(L1, L3, L4) 1.140 0.8 3.2 Normal Femoral Neck (Left) 0.700 -1.3 0.7 Osteopenia Total Hip (Left) 0.895 -0.4 1.4 Normal Femoral Neck (Right) 0.797 -0.5 1.6 Normal Total Hip (Right) 0.880 -0.5 1.2 Normal Total Hip Mean 0.887 -0.5 1.3 Normal World Health Organization criteria for BMD impression classify patients as: Normal (T-score at or above -1.0), Osteopenia (T-score between -1.0 and -2.5), or Osteoporosis (T-score at or below -2.5). 10-year Fracture Risk(1): Major Osteoporotic Fracture 9.9% Hip Fracture 1.6% Reported Risk Factors: [place] (), Neck BMD=0.700, BMI=33.2 (1) FRAX(R) Version 3.08. Fracture probability calculated for an untreated patient. Fracture probability may be lower if the patient has received treatment. Previous Exams: -- Region Exam Age BMD T-score BMD Change BMD Change Date g/cm2 vs Baseline vs Previous -- AP Spine (L1,L3-L4) 02/25/2023 72 1.140 0.8 0.058 (5.4%)# 0.058 (5.4%)# 04/28/2018 67 1.082 0.3 Total Hip(Left) 02/25/2023 72 0.895 -0.4 0.002 (0.2%)# 0.002 (0.2%)# 04/28/2018 67 0.893 -0.4 Total Hip(Right) 02/25/2023 72 0.880 -0.5 -0.003 (-0.3%)# -0.003 (-0.3%)# 04/28/2018 67 0.883 -0.5 -- *Denotes significance at 95% confidence level, LSC for AP Spine = 0.022 g/cm2, LSC for Total Hip = 0.027 g/cm2 # Denotes dissimilar scan types or analysis methods Impression: The patient has low bone mass, based on the Left Femoral Neck T-score. The patient has an estimated ten-year risk of hip fracture of 1.6% and an estimated ten-year risk of major fracture of 9.9%, based on the WHO FRAX algorithm. No significant bone loss was observed. Discussion: BONE DENSITY IS LOW AT ONE OR MORE SKELETAL SITES. This patient's lowest T-score is low at one or more skeletal sites. It meets the World Health Organization's (WHO) criteria for low bone mass (T-score between -1.0 and -2.5). The patient's 10-year risk of fracture as calculated by FRAX is less than the threshold where pharmacological therapy is recommended by the National Osteoporosis Foundation (NOF). However, all treatment decisions require clinical judgment and consideration of individual patient factors, including patient preferences, comorbidities, previous drug use, risk factors not captured in the FRAX model (e.g., frailty, falls, vitamin D deficiency, increased bone turnover, interval significant decline in bone density) and possible under or overestimation of fracture risk by FRAX. The patient should follow a healthful lifestyle (good nutrition with adequate calcium and vitamin D, and appropriate weight-bearing exercise). Follow-Up: Consider repeating this study in 2 to 3 years to reassess this patient's status, or sooner if there is some new clinical indication. Reported by: NINOSKA LOMAS M.D. on 02/25/2023 3:26:00 PM.
--- NOTE | 2023-02-25 | DI.US.S_ITS ---
PROCEDURE: US PELVIC COMPLETE INDICATIONS: ENDOMETRIAL THICKENING TECHNIQUE: Real-time scanning was performed of the pelvic organs, with image documentation. Additional endovaginal scanning was necessary due to incomplete visualization of the adnexal and endometrial structures by transabdominal scanning. COMPARISON: [facility], , US PELVIC COMPLETE, 12/02/2021, 12:46. FINDINGS: Uterus: Uterus is anteverted and measures 8.9 x 5.8 x 4.5 cm in size. The myometrium is heterogeneous. 1.8 x 1.3 x 1 cm intramural fibroid is seen in right myometrium. 1.2 x 0.8 x 0.6 cm intramural fibroid is seen in anterior myometrium near midline. 0.7 x 0.5 x 0.6 cm intramural fibroid is seen in anterior myometrium just to the right of midline. The endometrium measures 24.8 mm combined thickness. Heterogeneous echotexture within endometrium is seen with cystic areas and focal areas of calcifications. Increased vascularity is also noted within endometrium. Ovaries: The right ovary measures 2.2 x 1.5 x 1.8 cm, with a calculated ovarian volume of 3.1 cc. The left ovary is not visualized. Less than 12 follicles can be seen in right ovary. No adnexal masses are seen. Other: No pathologic free abdominal or pelvic fluid. IMPRESSION: 1. Enlarged uterus with heterogeneous myometrial echotexture and multiple uterine fibroids as above. 2. Thickened endometrium with hypervascularity and internal cystic and calcified areas concerning for endometrial hyperplasia. Underlying endometrial mass cannot be excluded. Class B Driver correlation is recommended. 3. No gross abnormality is seen in right ovary. Left ovary is not visualized. No gross adnexal mass. We strive to produce accurate, complete, and clear reports of imaging services. To assist us in improving patient care, this report was composed using standard report templates and voice recognition software. Therefore, it may contain abnormal punctuation, insertions and/or omissions. Occasional wrong-word or sound-alike substitutions may occur. Though we review the report and make efforts to correct it, we do recommend that the report be read carefully in proper context to recognize any text inaccuracies. Dictated by: Artur Aaron M.D. on 02/25/2023 at 16:44 Approved by: Artur Aaron M.D. on 02/25/2023 at 16:47
== END ==
PROVIDERS: PCP Student in an Organized Health Care Education/Training Program; Referring Provider Student in an Organized Health Care Education/Training Program; Visit Provider Student in an Organized Health Care Education/Training Program
DX: Z12.31 Encounter for screening mammogram for malignant neoplasm of breast (principal); R93.89 Abnormal findings on diagnostic imaging of other specified body structures; D25.1 Intramural leiomyoma of uterus; Z13.820 Encounter for screening for osteoporosis; M85.852 Other specified disorders of bone density and structure, left thigh; Z78.0 Asymptomatic menopausal state
CPT/HCPCS: 76830; 76856; 77063; 77067; 77080

== ENCOUNTER → 2023-04-01 12:11 | Outpatient (CLI) | payer OTHER, SELFPAY ==
--- NOTE | 2023-04-01 12:13 | DI.MG.S_ITS ---
UNILATERAL LEFT DIGITAL DIAGNOSTIC MAMMOGRAM 3D/2D WITH ADDITIONAL VIEWS: 04/01/2023 CLINICAL: Additional evaluation requested from prior study. Comparison is made to exams dated: 02/25/2023 mammogram and 04/28/2018 mammogram - [facility]. The left breast is heterogeneously dense, which may obscure small masses (category c / 51-75% glandular tissue). There is a 2.5 cm irregular mass with an indistinct margin and fine heterogeneous calcifications in the left breast at 1 o'clock middle depth. This is seen in additional views. There is architectural distortion associated with the mass. There also is a possible 1 cm irregular equal density focal asymmetry with an indistinct margin in the left breast at 12 o'clock posterior depth seen a short distance posterior and inferior to the mass described above. No other significant masses or calcifications are seen in the breast. IMPRESSION: INCOMPLETE: NEEDS ADDITIONAL IMAGING EVALUATION The 2.5 cm irregular mass in the left breast at 1 o'clock middle depth is indeterminate. An ultrasound is recommended for further evaluation and is scheduled to immediately follow this examination. The possible 1 cm irregular equal density focal asymmetry in the left breast at 12 o'clock posterior depth may represent a satellite lesion and is also indeterminate. An ultrasound is recommended for further evaluation and is scheduled to immediately follow this examination. Based on the Tyrer Cuzick model (a risk assessment model) the patient's lifetime risk is 7.5% and her 10 year risk is 6.7%. According to the ACR, ACS, and NCCN guidelines, an annual breast MRI exam along with mammogram is recommended if the patient's lifetime risk is 20% or greater. This exam was interpreted at Station ID: [id number]. NOTE: For mammograms, a report in lay terms will be sent to the patient. Approximately 15% of breast malignancies will not be visualized mammographically. In the management of a palpable breast mass, a negative mammogram must not discourage biopsy of a clinically suspicious lesion. Electronically Signed By: Dakota Auugste M.D. aty/:04/01/2023 12:45:29 ACR BI-RADS Category 0: Incomplete 3340F
--- NOTE | 2023-04-01 12:13 | DI.US.S_ITS ---
ULTRASOUND OF LEFT BREAST AND AXILLA: 04/01/2023 CLINICAL: Patient returns today to evaluate two focal asymmetries in the left breast. Comparison is made to exams dated: 04/01/2023 mammogram, 02/25/2023 mammogram, and 04/28/2018 mammogram - [facility]. Color flow and real-time ultrasound of the left breast axilla were performed. Robles scale images of the real-time examination were reviewed. There is a 1.6 cm x 1 cm x 1.4 cm irregular mass with an indistinct margin in the left breast at 2 o'clock middle depth 6 cm from the nipple. This irregular mass displays posterior acoustic shadowing. This correlates with mammography findings. There are calcifications as seen mammographically. Color flow imaging demonstrates that there is an adjacent vascularity. There is no sonographic abnormality identified to correlate with previously described possible 1 cm satellite lesion in the left breast central to the nipple posterior depth seen on today's mammogram. No significant abnormalities were seen sonographically in the left axilla. IMPRESSION: HIGHLY SUGGESTIVE OF MALIGNANCY The 1.6 cm x 1 cm x 1.4 cm irregular mass in the left breast at 2 o'clock middle depth is highly suggestive of malignancy. No sonographic abnormalities identified in the axilla. No axillary adenopathy. An ultrasound guided biopsy is recommended. Findings and recommendations were discussed with the patient by Dr. Carrion during today's examination. This exam was interpreted at Station ID: [id number]. Electronically Signed By: Dakota Auguste M.D. aty/:04/01/2023 13:46:39 letter sent: Biopsy Required Ultrasound BI-RADS: 5 Highly suggestive of malignancy
== END ==
PROVIDERS: PCP Student in an Organized Health Care Education/Training Program; Visit Provider Physician Assistant
DX: R92.8 Other abnormal and inconclusive findings on diagnostic imaging of breast (principal); N63.21 Unspecified lump in the left breast, upper outer quadrant; N64.89 Other specified disorders of breast
CPT/HCPCS: 76642; 77065; G0279

== ENCOUNTER → 2023-04-20 14:09 | Outpatient (CLI) | payer OTHER, SELFPAY ==
--- NOTE | 2023-04-20 | PATH_ITS ---
[facility] Accession Number: [id number] No. of containers..01 Tissue . 01 Material submitted: . breast - LEFT BREAST 2:00 6 CMFN MASS . 01 Diagnosis: A. Left Breast, Mass, 2 o'clock, 6 cm From The Nipple, Biopsy: Invasive (ductal) carcinoma, with lobular growth pattern, grade 2 of 3 ([employer] combined histologic grade, total score 6/9), and the following features: 1. Nuclear pleomorphism: Intermediate. (2/3) 2. Mitotic rate: Low. (1/3) 3. Tubular differentiation: Little or none. (3/3) 4. Size of invasive carcinoma: Present on four cores, single largest dimension at least 8 mm in the sample. 5. Ductal carcinoma in situ: Absent. 6. Calcifications: present, in association with invasive carcinoma. 7. Lymphatic invasion: Absent. 8. Prognostic markers: - Estrogen receptor status: Positive (more than 90% tumor cells staining, staining intensity strong). - Progesterone receptor status: Positive (50% tumor cells staining, staining intensity strong). - HER2: Equivocal for protein overexpression by immunohistochemistry (2+); HER2 gene amplification by FISH studies is pending and results will be reported in an addendum. . COMMENT: Extensive crushing artifact limits histologic assessment. MRV 04/24/2023 1516 Local . 01 Electronically signed: . Malathi Boo MD, Pathologist NPI- [id number] . 01 Gross description: . The specimen is received in formalin labeled with the patient's name, , and US BX breast, consists of multiple yellow to abreu soft tissue fragments aggregating to 1.5 x 0.5 x 0.2 cm. Inked black, filtered, and submitted entirely in cassette A1. . The specimen was removed on 04/20/2023 at 1508. Time in formalin not provided. Cold ischemic time cannot be calculated. Total fixation time is approximately 28 hours. ([id number]) /MRV 04/21/2023 1058 Local . 01 Microscopic: . A panel of immunohistochemical stains is performed on block A1 in order to evaluate for lobular phenotype, with appropriately staining external controls. The invasive carcinoma shows the following immunoprofile: . Beta-catenin: Retained within cell membranes (in support of ductal phenotype). E-cadherin: Retained within cell membranes (in support of ductal phenotype). . GATA3: Diffusely positive. Mammoglobin: Diffusely positive. GCDFP15: Variable positivity. . Predictive marker immunohistochemical studies are performed on block A1 with the invasive carcinoma showing the following results: . Estrogen receptor (SP1): Positive (more than 90% tumor cells staining, staining intensity strong). Progesterone receptor (1E2): Positive (50% tumor cells staining, staining intensity strong). Her2 (4B5): Equivocal for protein overexpression by immunohistochemistry (2+); HER2 gene amplification by FISH studies is pending and results will be reported in an addendum. . Cold ischemic time is <5 minutes. The scoring criteria for breast biomarkers by immunohistochemistry is based on the ASCO/CAP guidelines (Miguelangel AC et al, J Clin Oncol: 2018 Jan 05;36(20):9569-7587 and Ritchie ROSAS et al, Arch Pathol Lab Med: 2009;134(6):907-22). Deparaffinized sections of formalin fixed tissue (along with appropriate positive controls) are incubated with the above antibody(s). Using the automated [place] stainer, tissue is incubated with the designated antibody which is then localized by a non-biotin, dual polymer detection system. The external controls are reviewed for appropriate reactivity and found to be adequate. Results on the target cell population are indicated above. These tests have not been validated on decalcified tissue. This test was developed and its performance characteristics determined by [facility]. It has not been cleared or approved by the U.S. Food and Drug Administration. The FDA has determined that such clearance or approval is not necessary. This test is used for clinical purposes. It should not be regarded as investigational or for research. . 01 Pathologist provided ICD-10: C50.812 . 01 CPT . 455454, P39800, F25989, 203028, 658258, 245674 Specimen Comment: A courtesy copy of this report has been sent to [facility] Performed at: [address] [address], [place], [place] [id number] MD Jluis Benavidez MD Phone: [phone]
--- NOTE | 2023-04-20 | DI.MG.S_ITS ---
UNILATERAL LEFT DIGITAL DIAGNOSTIC MAMMOGRAM 3D/2D - LEFT BREAST POST-PROCEDURE IMAGING FOR MARKER PLACEMENT: 04/20/2023 CLINICAL: Post left breast ultrasound biopsy, clip placment imaging. Comparison is made to exams dated: 04/01/2023 mammogram, 02/25/2023 mammogram, and 04/28/2018 mammogram - [facility]. The left breast is heterogeneously dense, which may obscure small masses (category c / 51-75% glandular tissue). There is a marker clip in the appropriate position in the left breast at 1 o'clock middle depth 6 cm from the nipple. This marker clip placement is at the biopsy site. IMPRESSION: POST PROCEDURE MAMMOGRAM FOR MARKER PLACEMENT There was a successful marker clip placement in the left breast middle depth. Based on the Tyrer Cuzick model (a risk assessment model) the patient's lifetime risk is 7.5% and her 10 year risk is 6.7%. According to the ACR, ACS, and NCCN guidelines, an annual breast MRI exam along with mammogram is recommended if the patient's lifetime risk is 20% or greater. This exam was interpreted at Station ID: [id number]. NOTE: For mammograms, a report in lay terms will be sent to the patient. Approximately 15% of breast malignancies will not be visualized mammographically. In the management of a palpable breast mass, a negative mammogram must not discourage biopsy of a clinically suspicious lesion. Electronically Signed By: Craig perez/penrad:04/20/2023 15:56:52 ACR BI-RADS Category Post-procedure mammogram for marker placement
--- NOTE | 2023-04-20 | DI.US.S_ITS ---
ULTRASOUND GUIDED BIOPSY LEFT BREAST WITH MARKING DEVICE INSERTED AND POST MAMMOGRAPHIC IMAGIN04/20/2023 CLINICAL: Left breast mass. PATIENT CONSENT: Risks (minor bleeding, infection, vasovagal reaction and repeat procedure), benefits and alternatives were explained to the patient and written informed consent was obtained. Correlation is made to exams dated: 04/01/2023 ultrasound, 04/01/2023 mammogram, and 02/25/2023 mammogram - [facility]. An ultrasound guided biopsy using real-time ultrasound was performed for the partially solid mass located in the left breast at 1 o'clock middle depth. The skin was prepped in the usual manner. Local anesthetic was administered to the access site. A small incision was made in the breast. The abnormality was approached from the lateral aspect. An 18 gauge biopsy needle was placed adjacent to the abnormality under ultrasound guidance. Once the needle was documented to be in the correct location, four specimens were obtained using Elevation 12 guage Elevation 12 guage. A clip was inserted into the biopsy cavity. Post procedure mammographic imaging demonstrates the location device at the targeted area. The specimens were sent to the laboratory for pathological analysis. IMPRESSION: ULTRASOUND GUIDED BIOPSY MALIGNANT Ultrasound guided biopsy of the partially solid mass in the left breast at 1 o'clock middle depth was successful. Pathology indicates malignant invasive ductal carcinoma with lobular features. Pathology results are concordant with imaging findings. A surgical/oncologic consultation is recommended. Results and recommendations will be communicated to the ordering provider's office. This exam was interpreted at Station ID: [id number]. Craig perez,krg/:04/28/2023 09:48:54
== END ==
PROVIDERS: PCP Student in an Organized Health Care Education/Training Program; Referring Provider Student in an Organized Health Care Education/Training Program; Visit Provider Student in an Organized Health Care Education/Training Program
DX: C50.412 Malignant neoplasm of upper-outer quadrant of left female breast (principal); Z17.0 Estrogen receptor positive status [ER+]
CPT/HCPCS: 19083; 77065

== ENCOUNTER → 2024-09-02 | Outpatient (CLI) | payer MEDICARE, SELFPAY ==
--- NOTE | 2024-09-02 14:21 | DI.MG.S_ITS ---
MM screening mammo unilat RT: 09/02/2024. BI-RADS: 1 CLINICAL: 74-year old female for right screening mammogram. No Tyrer-Cuzick risk score calculation due to the patient's personal history of breast cancer. Patient reports a history of left breast carcinoma diagnosed at age 72. Status-post left mastectomy with radiation therapy. No first-degree family history of breast cancer. Patient was diagnosed within the last 5 years. The patient had a prior left breast biopsy. PRIOR EXAMS 06/11/2023, 06/10/2023, 06/04/2023, 05/26/2023, 05/18/2023, 04/20/2023, 04/01/2023, 02/25/2023, 04/28/2018. MAMMOGRAPHY TECHNIQUE: 2D and 3D (tomosynthesis) digital mammographic views obtained, with additional images as needed for full coverage. Current study was also evaluated with a Computer Aided Detection (CAD) system. DENSITY Right: C. The breasts are heterogeneously dense, which may obscure small masses. MAMMOGRAPHY FINDINGS Right: No suspicious mass, asymmetry, microcalcification, or other abnormality seen. IMPRESSION: Right * No evidence of malignancy. RECOMMENDATIONS Right * Annual screening mammography. OVERALL ASSESSMENT CATEGORY BI-RADS-1: Negative. The [employer] recommends annual screening mammography beginning at age 40 for women with average risk of breast cancer. ELECTRONICALLY SIGNED: Dakota Auguste M.D. on 09/03/2024 at 03:21:23 PM PT Interpreting Station ID: [id number]
== END ==
PROVIDERS: PCP Family Medicine; Referring Provider Family Medicine; Visit Provider Family Medicine
DX: Z12.31 Encounter for screening mammogram for malignant neoplasm of breast (principal); Z85.3 Personal history of malignant neoplasm of breast; R92.331 Mammographic heterogeneous density, right breast
CPT/HCPCS: 77063; 77067

== ENCOUNTER → 2025-03-01 12:23 | Outpatient (CLI) | payer MEDICARE, SELFPAY ==
--- NOTE | 2025-03-01 12:25 | DI.RAD.S_ITS ---
PROCEDURE: XR DEXA AXIAL SKELETON INDICATIONS: osteoporosis screening COMPARISON: [facility], CR, XR DEXA AXIAL SKELETON, 02/25/2023, 15:01. FINDINGS: Lumbar Spine: Bone mineral density 1.130 (previously 1.140) g/cm2, T score 0.8 (previously 0.8). Left Femoral Neck: Bone mineral density 0.688 (previously 0.700) g/cm2, T score -1.4 (previously -1.3). Left Hip: Bone mineral density 0.846 (previously 0.895) g/cm2, T score -0.8 (previously -0.4). Fracture Risk Calculation (when applicable): 10-year fracture risk of a major osteoporotic fracture 11 percent and of a hip fracture 2.1 percent. (T score greater or equal to -1.0 to: NORMAL) (T score from -1.1 to -2.4: OSTEOPENIA) (T score less than or equal to -2.5: OSTEOPOROSIS) IMPRESSION: Osteopenia--- recommend repeat DEXA in 2-3 years for reassessment. Follow-up guidelines as follows: Osteoporosis: Consider a repeat DEXA and Vertebral Fracture Assessment (VFA) exam in 2 years or sooner if medically necessary, to reassess this patient's status. Osteopenia: Consider a repeat DEXA in 2-3 years to reassess this patient's status, or if there is a new clinical indication. Normal: Consider a repeat DEXA in 5 years or sooner, or if there is a new clinical indication. All treatment decisions require clinical judgment and consideration of individual patient factors, including patient preferences, comorbidities, previous drug use, risk factors not captured in the FRAX model (e.g., frailty, falls, vitamin D deficiency, increased bone turnover, interval significant decline in bone density ) and possible under- or over-estimation of fracture risk by FRAX. In addition, the NOF Guide recommends that FDA-approved medical therapies be considered in postmenopausal women and men age >= 50 years with a: * Hip or vertebral (clinical or morphometric) fracture * T-score of <=-2.5 at the spine or hip * Ten-year fracture probability by FRAX of >= 3% for hip fracture or >=20% for major osteoporotic fracture. Dictated by: Michael Ledezma M.D. on 03/01/2025 at 18:17 Approved by: Michael Ledezma M.D. on 03/01/2025 at 18:22
== END ==
LOC: RAD 12:24
PROVIDERS: PCP Family Medicine; Referring Provider Nurse Practitioner; Visit Provider Nurse Practitioner
DX: C50.412 Malignant neoplasm of upper-outer quadrant of left female breast (principal); M85.852 Other specified disorders of bone density and structure, left thigh; Z17.0 Estrogen receptor positive status [ER+]; Z79.811 Long term (current) use of aromatase inhibitors; Z51.81 Encounter for therapeutic drug level monitoring; Z79.899 Other long term (current) drug therapy
CPT/HCPCS: 77080